=== PATIENT | female | born 1985 | race Caucasian/White ===

== ENCOUNTER 2018-02-16 03:12 | Inpatient (IN) ==
--- NOTE | 2018-02-16 03:41 | ED ---
HPI General Chief Complaint: Fall Stated Complaint: fall Time Seen by Provider: 02/16/18 03:26 History of Present Illness HPI Narrative: Patient is a 32-year-old female who was at a bar dancing on a bar and she slipped and fell off the bar and landed on a barstool in the floor. She complains of left lateral rib area rib 5 through 7 area on the lateral aspect she has a small hematoma to her forearm she is not complaining of shortness of breath she is mildly intoxicated and the main complaint is severe pain in the lateral left ribs , worse with deep inspiration , worse with movement worse with stretching or bending... No complaint of long bones pain on initial exam ... CAT scan will be done of her chest and ribs Related Data Home Medications Medication Instructions Recorded Confirmed bupropion HCl [Wellbutrin SR] 100 mg PO BID 02/16/18 02/16/18 sertraline [Zoloft] 25 mg PO DAILY 02/16/18 02/16/18 Previous Rx's Medication Instructions Recorded cyclobenzaprine 5 mg PO Q8HR #15 tab 02/17/18 oxycodone-acetaminophen [Percocet] 1 tab PO Q4H PRN #14 tab 02/17/18 sennosides-docusate sodium [Senna 1 tab PO BID tab 02/17/18 Plus] Allergies Allergy/AdvReac Type Severity Reaction Status Date / Time codeine Allergy Vomiting Verified 02/16/18 03:38 Review of Systems ROS: all other systems reviewed are negative REPLACED BY [facility] Social History Social History Substance History: No History of Abuse Second Hand Smoke Exposure: Yes Smoking Status: Current every day smoker Tobacco Type: Cigarettes How Often Do You Have a Drink Containing Alcohol: 2 to 3 times a week Immunization History Tetanus Immunization: Unsure Exam Narrative Exam Narrative: GENERAL: Pt appears in pain , holding her left ribs SKIN: Warm and dry. HEAD: Atraumatic. Normocephalic. EYES: Pupils equal and round. No scleral icterus. No injection or drainage. ENT: No nasal bleeding or discharge. Mucous membranes pink and moist. NECK: Trachea midline. No JVD. CARDIOVASCULAR: Regular rate and rhythm. RESPIRATORY: No accessory muscle use. Clear to auscultation. Breath sounds equal bilaterally. Chest wall left lateral ribs tender to palpation no step off felt GASTROINTESTINAL: Abdomen soft, non-tender, nondistended. Hepatic and splenic margins not palpable. MUSCULOSKELETAL: Extremities without clubbing, cyanosis, or edema. No obvious deformities. NEUROLOGICAL: Awake and alert. No obvious cranial nerve deficits. Motor grossly within normal limits. Five out of 5 muscle strength in the arms and legs. Normal speech. PSYCHIATRIC: Awake alert Course Initial Documented Vital Signs Temperature 98.7 F 02/16/18 03:17 Pulse Rate 95 H 02/16/18 03:17 Respiratory Rate 15 02/16/18 03:17 Blood Pressure 117/64 02/16/18 03:17 Pulse Oximetry 99 02/16/18 03:17 Last Documented Vital Signs Temperature 98.3 F 02/17/18 12:00 Pulse Rate 76 02/17/18 12:00 Respiratory Rate 16 02/17/18 12:00 Blood Pressure 113/55 L 02/17/18 12:00 Pulse Oximetry 95 02/17/18 12:00 Medical Decision Making MDM Narrative Medical decision making narrative: pt has CT showing ribs fracture and pleural sac blood from rib into lung trauma , pt awake alert but in more pain as time goes on, Morphine 4 mg IVP and NS and consulted trauma to admit for close lung obvervation and resp state monitoring pulmonary toiletry Dr. Luis sees pt. bedside and admits Medical Screen Exam Complete: Yes Emergency Medical Condition: Yes Differential Diagnosis Differential Diagnosis: rib fractures vs contusion vs lung contusion vs PTX other Lab Data Result diagrams: 02/17/18 04:14 02/17/18 04:14 POC Results POC Urine Results Negative Lab Results 02/16/18 02/16/18 02/16/18 Range/Units 03:30 04:50 04:50 WBC 10.5 (4.0-11.0) th/mm3 RBC 4.06 (4.00-5.30) mil/mm3 Hgb 12.9 (11.6-15.3) gm/dL Hct 36.9 (35.0-46.0) % MCV 90.8 (80.0-100.0) fL MCH 31.9 (27.0-34.0) pg MCHC 35.1 (32.0-36.0) % RDW 12.6 (11.6-17.2) % Plt Count 200 (150-450) th/mm3 MPV 9.3 (7.0-11.0) fL Neut % (Auto) 75.6 H (16.0-70.0) % Lymph % (Auto) 14.6 (9.0-44.0) % [place] % (Auto) 9.1 H (0.0-8.0) % Eos % (Auto) 0.3 (0.0-4.0) % Baso % (Auto) 0.4 (0.0-2.0) % Neut # (Auto) 7.9 H (1.8-7.7) th/mm3 Lymph # (Auto) 1.5 (1.0-4.8) th/mm3 [place] # (Auto) 1.0 H (0.0-0.9) th/mm3 Eos # (Auto) 0.0 (0.0-0.4) th/mm3 Baso # (Auto) 0.0 (0.0-0.2) th/mm3 WBC Differential . Differential Comment Auto diff final PT (9.8-11.6) sec INR Ratio Sodium 136 (136-145) meq/L Potassium 3.9 (3.5-5.1) meq/L Chloride 102 (98-107) meq/L Carbon Dioxide 25.6 (21.0-32.0) meq/L Anion Gap 8 (5-15) meq/L BUN 7 (7-18) mg/dL Creatinine 0.61 (0.50-1.00) mg/dL Estimated GFR Greater than 89 (>89) mL/min Random Glucose 115 H (74-106) mg/dL Calcium 8.3 L (8.5-10.1) mg/dL Total Bilirubin 0.4 (0.2-1.0) mg/dL AST 19 (15-37) U/L ALT 18 (10-53) U/L Alkaline Phosphatase 44 L (45-117) U/L Total Protein 6.7 (6.4-8.2) g/dL Albumin 4.0 (3.4-5.0) g/dL Urine Color Straw (Yellw/Straw) Urine Clarity Clear (Clear) Urine pH 6.0 (5.0-8.5) Ur Specific [place] 1.002 (1.002-1.035) Urine Protein Negative (Neg-Trace) mg/dL Urine Glucose (UA) Negative (Negative) mg/dL Urine Ketones Negative (Negative) mg/dL Urine Occult Blood Negative (Negative) Urine Nitrate Negative (Negative) Urine Bilirubin Negative (Negative) Urine Urobilinogen Less than 2 (Less than 2) mg/dL Ur Leukocyte Esterase Negative (Negative) Urine WBC Less than 1 (0-5) /hpf Ur Squamous Epith Cells <1 (0-5) /hpf Ur Microscopic Review Not Reportable 02/16/18 02/17/18 02/17/18 Range/Units 04:50 04:14 04:14 WBC 4.6 D (4.0-11.0) th/mm3 RBC 3.78 L (4.00-5.30) mil/mm3 Hgb 12.1 (11.6-15.3) gm/dL Hct 35.1 (35.0-46.0) % MCV 92.8 (80.0-100.0) fL MCH 32.0 (27.0-34.0) pg MCHC 34.5 (32.0-36.0) % RDW 12.2 (11.6-17.2) % Plt Count 161 (150-450) th/mm3 MPV 9.8 (7.0-11.0) fL Neut % (Auto) 47.0 (16.0-70.0) % Lymph % (Auto) 37.4 (9.0-44.0) % [place] % (Auto) 10.9 H (0.0-8.0) % Eos % (Auto) 4.3 H (0.0-4.0) % Baso % (Auto) 0.4 (0.0-2.0) % Neut # (Auto) 2.2 (1.8-7.7) th/mm3 Lymph # (Auto) 1.7 (1.0-4.8) th/mm3 [place] # (Auto) 0.5 (0.0-0.9) th/mm3 Eos # (Auto) 0.2 (0.0-0.4) th/mm3 Baso # (Auto) 0.0 (0.0-0.2) th/mm3 WBC Differential . Differential Comment Auto diff final PT 11.2 (9.8-11.6) sec INR 1.1 Ratio Sodium 140 (136-145) meq/L Potassium 4.3 (3.5-5.1) meq/L Chloride 103 (98-107) meq/L Carbon Dioxide 28.0 (21.0-32.0) meq/L Anion Gap 9 (5-15) meq/L BUN 6 L (7-18) mg/dL Creatinine 0.64 (0.50-1.00) mg/dL Estimated GFR Greater than 89 (>89) mL/min Random Glucose 93 (74-106) mg/dL Calcium 8.4 L (8.5-10.1) mg/dL Total Bilirubin 0.6 (0.2-1.0) mg/dL AST 17 (15-37) U/L ALT 17 (10-53) U/L Alkaline Phosphatase 44 L (45-117) U/L Total Protein 6.0 L D (6.4-8.2) g/dL Albumin 3.4 D (3.4-5.0) g/dL Urine Color (Yellw/Straw) Urine Clarity (Clear) Urine pH (5.0-8.5) Ur Specific [place] (1.002-1.035) Urine Protein (Neg-Trace) mg/dL Urine Glucose (UA) (Negative) mg/dL Urine Ketones (Negative) mg/dL Urine Occult Blood (Negative) Urine Nitrate (Negative) Urine Bilirubin (Negative) Urine Urobilinogen (Less than 2) mg/dL Ur Leukocyte Esterase (Negative) Urine WBC (0-5) /hpf Ur Squamous Epith Cells (0-5) /hpf Ur Microscopic Review Imaging Data Radiologist's impression: Chest CT 02/16/18 03:41 CONCLUSION: 1. There is a comminuted and mildly displaced left posterior ninth rib fracture and a nondisplaced left posterior 10th rib fracture. No associated pneumothorax is present. There is mild adjacent subpleural hemorrhage. Atelectasis is also present in the adjacent left lower lobe. 2. There is a nonspecific incompletely characterized 1.1 cm low-density lesion in the right lobe of the liver. Suggest correlating with patient's prior imaging studies to determine if this is a chronic finding. 3. Main pulmonary artery is mildly enlarged. Chest X-Ray 02/17/18 00:00 CONCLUSION: Left basilar atelectasis. Prominent mediastinal contour at the level of the pulmonary artery. Discharge Plan Discharge Disposition Patient Disposition: Discharge Home Discharge Condition Condition: Stable Discharge Order Discharge Orders: Discharge Order (Routine); Ordered 02/17/18 Ordered By: Brian Sims Physicians Team ED Provider: Sebastian Burleson Primary Care Provider: Primary Care Edith Jensen Attending Provider: Shyam Luis Other Providers: Freeman Stafford ; Tristen Velazco ; Systems[facility] ; Robin Contreras ; Aidee Painter ; Shyam Luis ; Alma Rosa Weston ; Brian Sims ; Kye Howell Status ED Status: Left Department Discharge Information Discharge Date/Time: 02/16/18 08:00
[2018-02-16 04:02] LABS: Bilirubin,Urine Negative (Negative); Clarity,Urine Clear (Clear); Color,Urine Straw (Yellw/Straw); Glucose,Urine (UA) Negative (Negative); Leukocyte Esterase,Urine Negative (Negative); Nitrite,Urine Negative (Negative); Specific Gravity,Urine 1.002 (1.002-1.035); Squamous Epithelial Cell,Urine <1 /hpf (0-5)
--- NOTE | 2018-02-16 04:10 | CT ---
EXAM DATE: 02/16/2018 3:45 AM EDT AGE/SEX: 32 years / Female INDICATIONS: Fall. Left sided rib pain. CLINICAL DATA: This is the patient's initial encounter. Patient reports that signs and symptoms have been present for 1 day and indicates a pain score of 8/10. MEDICAL/SURGICAL HISTORY: Cerebrovascular disease. . Repair of hole in heart RADIATION DOSE: 6.46 CTDI (mGy) COMPARISON: No prior exams available for comparison. TECHNIQUE: Multiple contiguous axial images were obtained through the chest without contrast. Image s were obtained in suspended respiration using multiple row detector helical technique. Using automa eugenia exposure control and adjustment of the mA and/or kV according to patient size, radiation dose was kept as low as reasonably achievable to obtain optimal diagnostic quality images. DICOM format imag e data is available electronically for review and comparison. FINDINGS: Lungs: There is mild atelectasis in the left lower lobe adjacent to the rib fracture. No pneumothora x is present. No concerning pulmonary nodule is identified. Mediastinum: No acute abnormality is identified on this noncontrast examination. Surgical clips are present in the anterior mediastinum. Main pulmonary arteries mildly enlarged measuring 3.6 cm. No lym phadenopathy is identified. Pleurae: No pleural effusion or pleural thickening. There is mild subpleural hemorrhage adjacent to the rib fracture. Axillae: No lymphadenopathy. Musculoskeletal: There is a comminuted and mildly displaced fracture of the left posterior ninth rib . Nondisplaced left posterior 10th rib fracture is also present. Median sternotomy wires are present. Other: Liver density is mildly increased. In the right lobe there is a 1.1 cm low-density lesion. CONCLUSION: 1. There is a comminuted and mildly displaced left posterior ninth rib fracture and a nondisplaced l eft posterior 10th rib fracture. No associated pneumothorax is present. There is mild adjacent subple ural hemorrhage. Atelectasis is also present in the adjacent left lower lobe. 2. There is a nonspecific incompletely characterized 1.1 cm low-density lesion in the right lobe of the liver. Suggest correlating with patient's prior imaging studies to determine if this is a chronic finding. 3. Main pulmonary artery is mildly enlarged. Electronically signed by: Jg Quiroz MD 02/16/2018 4:09 AM EDT
[2018-02-16] MEDS ORDERED: Morphine Inj 4 MG/ML Vial IV.PUSH ONE ×2 (04:27→07:09)
[2018-02-16] MEDS ORDERED: Sod Chloride 0.9% Inj 1,000 ML IV.SIG ONE (04:28)
[2018-02-16 04:59] LABS: Baso % (Auto) 0.4 % (0.0-2.0); Eos % (Auto) 0.3 % (0.0-4.0); Hematocrit 36.9 % (35.0-46.0); Hemoglobin 12.9 gm/dL (11.6-15.3); Lymph # (Auto) 1.5 th/mm3 (1.0-4.8); Lymph % (Auto) 14.6 % (9.0-44.0); Mean Corpuscular HGB Conc 35.1 % (32.0-36.0); Mean Corpuscular Hemoglobin 31.9 pg (27.0-34.0); Mean Corpuscular Volume 90.8 fL (80.0-100.0); Mean Platelet Volume 9.3 fL (7.0-11.0); Mono % (Auto) 9.1 % (0.0-8.0); Neut # (Auto) 7.9 th/mm3 (1.8-7.7); Neut % (Auto) 75.6 % (16.0-70.0); Platelet Count 200 th/mm3 (150-450); Red Blood Count 4.06 mil/mm3 (4.00-5.30); Red Cell Distribution Width 12.6 % (11.6-17.2); White Blood Count 10.5 th/mm3 (4.0-11.0)
[2018-02-16 05:12] LABS: INR 1.1 Ratio; Prothrombin Time 11.2 sec (9.8-11.6)
[2018-02-16 05:28] LABS: Anion Gap 8 meq/L (5-15); Aspartate Aminotransferase 19 U/L (15-37); Blood Urea Nitrogen 7 mg/dL (7-18); Calcium 8.3 mg/dL (8.5-10.1); Carbon Dioxide 25.6 meq/L (21.0-32.0); Chloride 102 meq/L (98-107); Glomerular Filtration Rate Greater Than 89 mL/min (>89); Glucose,Random 115 mg/dL (74-106); Potassium 3.9 meq/L (3.5-5.1); Sodium 136 meq/L (136-145)
[2018-02-16 05:29] LABS: Alanine Aminotransferase 18 U/L (10-53)
[2018-02-16 05:31] LABS: Alkaline Phosphatase 44 U/L (45-117); Total Protein 6.7 g/dL (6.4-8.2)
[2018-02-16] MEDS ORDERED: Naloxone Inj 0.4 MG/ML Vial IV.PUSH ONE (06:21)
[2018-02-16] MEDS: HYDROmorphone PF Inj 2 MG/ML Vial IV.PUSH SCH ×2 (07:21→12:02)
[2018-02-16] MEDS ORDERED: Sodium Chloride 0.9% 2 ML Flush PRN IV.FLUSH (08:43)
[2018-02-16] MEDS ORDERED: Docusate Sodium Liq 100 MG/10 ML UDC PO SCH (09:00)
[2018-02-16] MEDS ORDERED: Docusate Sodium 100 MG Capsule PO SCH (09:00)
[2018-02-16] MEDS: Lidocaine 5% Patch T-DERMAL SCH (09:29)
[2018-02-16] MEDS: Multivitamin Inj 10 ML, Thiamine Inj 100 MG, Folic Acid Inj 1 MG in Sodium Chlor 0.9% I... IV.SIG SCH (09:29)
[2018-02-16] MEDS: Senna/Docusate Sodium 8.6/50 MG Tablet PO SCH ×2 (09:33→20:41)
[2018-02-16] MEDS: Sodium Chloride 0.9% 2 ML Flush BID IV.FLUSH SCH ×2 (09:33→20:41)
--- NOTE | 2018-02-16 09:35 | MH ---
cc: Shyam Luis MD DATE OF ADMISSION: 02/16/2018 CHIEF COMPLAINT: Fall, left rib fractures. CLIENT RESOURCE SPECIALIST: Dr. Burleson. HISTORY OF PRESENT ILLNESS: The patient is a 32-year-old female who presents status post fall. The patient was noted to be dancing on a bar and slipped and fell last night. She went on a bar stool and landed on her left chest. She was complaining of left rib pain and noted some abrasion in this area. Also left forearm pain. She does have positive ETOH. She is hemodynamically stable. GCS of 15, appropriately responding to commands. Surgery was consulted for further evaluation and management. Primary and secondary surveys were done. No further acute traumatic findings. PAST MEDICAL HISTORY: "Hole in heart," suspect PDA. PAST SURGICAL HISTORY: Open heart surgery. ALLERGIES: CODEINE. MEDICATIONS: See EMR. SOCIAL HISTORY: Positive smoking, positive ETOH. FAMILY HISTORY: Denies diabetes or hypertension. REVIEW OF SYSTEMS: General 12-point review of systems is otherwise negative, except as above. PHYSICAL EXAMINATION: GENERAL: The patient is in no acute distress. VITAL SIGNS: Temperature 98.7, pulse 95, respiration 15, blood pressure 117/64, saturation 99%. HEENT: Pupils are round, reactive. NECK: Supple. Trachea midline. Clavicles nontender. LUNGS: Clear to auscultation. Bilateral expansion. A well-healed midline surgical scar. HEART: S1, S2. Regular. ABDOMEN: Soft, nontender, nondistended. Left chest positive tenderness to palpation. EXTREMITIES: Warm and well perfused. A small bruising, left extremity forearm. NEUROLOGIC: GCS of 15, 5/5 motor in all extremities. SKIN: As above. Bruising to the left arm. LABORATORY AND DIAGNOSTIC DATA: WBC 10.5, hemoglobin 12.9, hematocrit 36.9, platelets 200. Sodium 136, potassium 3.5, chloride 102, CO2 of 25.6, BUN 7, creatinine 0.6, glucose 115. CT scan reviewed by myself showing a fracture, left-sided rib numbers 9 and 10. A 1 cm right lobe lesion. No hemothorax. ASSESSMENT: The patient is a 32-year-old female, status post fall. The patient noted to have rib fractures x 2. No hemo or pneumothorax. PLAN: After full workup, the patient with above noted issues. At this point, we will admit the patient for pain control, IV fluids and pulmonary toilet. We will recheck a chest x-ray to make sure no pneumothorax develops. We will get respiratory involved for pulmonary toilet and deep breathing exercises. Discussed with the patient in detail. Likely nonoperative intervention; however, would need aggressive respiratory therapy and pain control. MD JESE Kaye/alexi , 07:24 AM , 07:32 AM
[2018-02-16] MEDS: HYDROmorphone PF Inj 2 MG/ML Vial IV.PUSH PRN ×2 (11:05→14:15)
[2018-02-16] MEDS: Sod Chloride 0.9% Inj 1,000 ML IV.CONT SCH ×2 (12:01→16:12)
[2018-02-16] MEDS: Pantoprazole Inj 40 MG Vial IV.PUSH SCH (12:01)
[2018-02-16] MEDS ORDERED: HYDROmorphone PF Inj 2 MG/ML Vial IV.PUSH PRN (14:58)
[2018-02-16] MEDS: Ketorolac Inj 30 MG/ML (IVP) Vial IV.PUSH SCH ×3 (16:15→21:12)
[2018-02-16] MEDS: Sertraline 50 MG Tablet PO SCH (16:15)
[2018-02-16] MEDS: buPROPion 100 MG ER 12 HR Tablet PO SCH ×3 (16:15→20:55)
[2018-02-16] MEDS ORDERED: Senna/Docusate Sodium 8.6/50 MG Tablet PO SCH (21:00)
[2018-02-17] MEDS: Sod Chloride 0.9% Inj 1,000 ML IV.CONT SCH ×2 (01:31→14:10)
[2018-02-17] MEDS ORDERED: Chlorhexidine Gluconate 2% 1 Pack (2 Cloths) TOPICAL PRN (04:00)
[2018-02-17] MEDS ORDERED: Chlorhexidine Gluconate 2% 1 Pack (2 Cloths) TOPICAL SCH (04:00)
[2018-02-17] MEDS: Pantoprazole Inj 40 MG Vial IV.PUSH SCH ×2 (04:15→05:35)
[2018-02-17] MEDS: Ketorolac Inj 30 MG/ML (IVP) Vial IV.PUSH SCH ×4 (04:15→16:22)
[2018-02-17 05:28] LABS: Baso % (Auto) 0.4 % (0.0-2.0); Eos # (Auto) 0.2 th/mm3 (0.0-0.4); Eos % (Auto) 4.3 % (0.0-4.0); Hematocrit 35.1 % (35.0-46.0); Hemoglobin 12.1 gm/dL (11.6-15.3); Lymph # (Auto) 1.7 th/mm3 (1.0-4.8); Lymph % (Auto) 37.4 % (9.0-44.0); Mean Corpuscular HGB Conc 34.5 % (32.0-36.0); Mean Corpuscular Volume 92.8 fL (80.0-100.0); Mean Platelet Volume 9.8 fL (7.0-11.0); Mono # (Auto) 0.5 th/mm3 (0.0-0.9); Mono % (Auto) 10.9 % (0.0-8.0); Neut # (Auto) 2.2 th/mm3 (1.8-7.7); Platelet Count 161 th/mm3 (150-450); Red Blood Count 3.78 mil/mm3 (4.00-5.30); Red Cell Distribution Width 12.2 % (11.6-17.2); White Blood Count 4.6 th/mm3 (4.0-11.0)
[2018-02-17] MEDS: Multivitamin Inj 10 ML, Thiamine Inj 100 MG, Folic Acid Inj 1 MG in Sodium Chlor 0.9% I... IV.SIG SCH (05:36)
[2018-02-17 05:40] LABS: Alanine Aminotransferase 17 U/L (10-53); Albumin 3.4 g/dL (3.4-5.0); Anion Gap 9 meq/L (5-15); Aspartate Aminotransferase 17 U/L (15-37); Blood Urea Nitrogen 6 mg/dL (7-18); Calcium 8.4 mg/dL (8.5-10.1); Chloride 103 meq/L (98-107); Glomerular Filtration Rate Greater Than 89 mL/min (>89); Glucose,Random 93 mg/dL (74-106); Potassium 4.3 meq/L (3.5-5.1); Sodium 140 meq/L (136-145)
[2018-02-17 05:51] LABS: Alkaline Phosphatase 44 U/L (45-117)
--- NOTE | 2018-02-17 07:52 | XR ---
EXAM DATE: 02/17/2018 12:00 AM EDT AGE/SEX: 32 years / Female INDICATIONS: Pain left chest and ribs, difficult to take a deep breath CLINICAL DATA: This is the patient's subsequent encounter. Patient reports that signs and symptoms h ave been present for 1 day and indicates a pain score of 7/10. MEDICAL/SURGICAL HISTORY: Cardiovascular disease. left rib fractures . open heart surgery to r epair a hole in the heart done at age 19 COMPARISON: No prior exams available for comparison. FINDINGS: Median sternotomy wires and cardiomegaly noted. There is bandlike density at the left lung base felt to represent an area of atelectasis. Pulmonary arterial contour appears enlarged. CONCLUSION: Left basilar atelectasis. Prominent mediastinal contour at the level of the pulmonary artery. Electronically signed by: Van Schaffer MD 02/17/2018 7:51 AM EDT
[2018-02-17] MEDS: Senna/Docusate Sodium 8.6/50 MG Tablet PO SCH (08:43)
[2018-02-17] MEDS: Sertraline 50 MG Tablet PO SCH (08:43)
[2018-02-17] MEDS: buPROPion 100 MG ER 12 HR Tablet PO SCH (08:43)
[2018-02-17] MEDS: Sodium Chloride 0.9% 2 ML Flush BID IV.FLUSH SCH (08:44)
[2018-02-17] MEDS: Lidocaine 5% Patch T-DERMAL SCH (08:44)
[2018-02-17 09:16] VITALS: RESP 16
[2018-02-17 12:21] VITALS: BP 113/55; PULSE 76; TEMP 98.3; O2SAT 95
--- NOTE | 2018-02-17 13:54 | P.DS ---
Date of admission: 02/16/18 05:51 Primary care physician: No Primary Care Physician Brief History from admission: S/P Fall DS: Diagnosis - Discharge Diagnosis (1) Pulmonary contusion Status: Acute (2) Ribs, multiple fractures Status: Acute DS: Medications - Discharge Medications Prescriptions: cyclobenzaprine 5 mg PO Q8HR #15 tab oxycodone-acetaminophen [Percocet] 1 tab PO Q4H PRN #14 tab PRN Reason: Acute Pain DS: Summary Hospital Course: [place]: Dancing on a bar and fell off landing on a barstool. No LOC. INJURIES: LEFT rib fxs (9, 10) LEFT pulmonary contusion PMHx: depression LEFT rib fxs, LEFT pulmonary contusion Supportive care Pulmonary toileting CXR shows left basilar atelectasis. No PTX Pain control Bowel regimen OOB- PT ordered Follow-up in 1 week with PCP Plan of care discussed with patient and RN at bedside. Radiology imaging requested for patient to take to her PCP. Collaborating Trauma surgeon agrees with plan. Case management consulted to assist with discharge planning. Patient is clear from trauma surgery standpoint to safely discharge home. - Time Spent with Patient Total time spent providing and/or coordinating discharge services: Greater than 30 minutes - Quality: VTE Deep Vein Thrombosis/Pulmonary Embolism Present on Admission: No Exam Vital signs: Vital Signs 02/16/18 16:53 02/16/18 19:24 02/16/18 20:00 Temperature 98.1 F 98.0 F Pulse Rate 83 79 Respiratory Rate 19 18 17 Blood Pressure 111/60 105/57 L Pulse Oximetry 96 98 02/16/18 21:10 02/17/18 00:00 02/17/18 02:30 Temperature 97.9 F Pulse Rate 70 Respiratory Rate 18 17 18 Blood Pressure 112/62 Pulse Oximetry 99 02/17/18 05:33 02/17/18 05:57 02/17/18 08:00 Temperature 97.8 F Pulse Rate 72 Respiratory Rate 18 17 16 Blood Pressure 114/65 Pulse Oximetry 98 02/17/18 12:00 Temperature 98.3 F Pulse Rate 76 Respiratory Rate 16 Blood Pressure 113/55 L Pulse Oximetry 95 Intake & Output 02/16/18 02/17/18 02/17/18 18:59 06:59 18:59 Intake Total 1711.2 / 1711.2 240 / 240 Balance 1711.2 / 1711.2 240 / 240 Weight 83 kg 84.3 kg Intake: IV 1711.2 / 1711.2 Ofirmev Inj 1,000 mg In 100 ml 200 / 200 @ 400 mls/hr IV[facility] Q6H [facility] Rx# :[id number] MVI-12 Inj 10 ML Thiamine Inj 511.2 / 511.2 100 MG Folvite Inj 1 MG In NS Inj 500 ML @ 125 mls/hr IV.SIG Q24H [facility] Rx#:[id number] NS Inj 1,000 ML @ Wide Open IV. 1000 / 1000 SIG BOLUS ONE Rx#:[id number] Oral 240 / 240 Other: # Voids 5 Date of Last Bowel Movement 02/15/18 02/15/18 02/15/18 Weight On Admission 83 kg Narrative: GENERAL: 32-year-old well-nourished, well developed female lying in bed in no acute distress. SKIN: Warm and dry. HEAD: Normocephalic. CARDIOVASCULAR: Regular rate and rhythm. RESPIRATORY: No accessory muscle use. Lungs clear and diminished to auscultation. Breath sounds equal bilaterally. GASTROINTESTINAL: Abdomen soft, non-tender, nondistended. + BS. MUSCULOSKELETAL: Extremities without cyanosis, or edema. MAEW, + perfused NEUROLOGICAL: Awake and alert. Normal speech. Results Procedures completed during hospitalization: . Labs on day of discharge: Labs from last 24 hours 02/17/18 02/17/18 04:14 04:14 WBC 4.6 D RBC 3.78 L Hgb 12.1 Hct 35.1 MCV 92.8 MCH 32.0 MCHC 34.5 RDW 12.2 Plt Count 161 MPV 9.8 Neut % (Auto) 47.0 Lymph % (Auto) 37.4 [place] % (Auto) 10.9 H Eos % (Auto) 4.3 H Baso % (Auto) 0.4 Neut # (Auto) 2.2 Lymph # (Auto) 1.7 [place] # (Auto) 0.5 Eos # (Auto) 0.2 Baso # (Auto) 0.0 WBC Differential . Differential Comment Auto diff final Sodium 140 Potassium 4.3 Chloride 103 Carbon Dioxide 28.0 Anion Gap 9 BUN 6 L Creatinine 0.64 Estimated GFR Greater than 89 Random Glucose 93 Calcium 8.4 L Total Bilirubin 0.6 AST 17 ALT 17 Alkaline Phosphatase 44 L Total Protein 6.0 L D Albumin 3.4 D - Impressions ITS Impressions Chest CT 02/16/18 03:41 CONCLUSION: 1. There is a comminuted and mildly displaced left posterior ninth rib fracture and a nondisplaced left posterior 10th rib fracture. No associated pneumothorax is present. There is mild adjacent subpleural hemorrhage. Atelectasis is also present in the adjacent left lower lobe. 2. There is a nonspecific incompletely characterized 1.1 cm low-density lesion in the right lobe of the liver. Suggest correlating with patient's prior imaging studies to determine if this is a chronic finding. 3. Main pulmonary artery is mildly enlarged. Chest X-Ray 02/17/18 00:00 CONCLUSION: Left basilar atelectasis. Prominent mediastinal contour at the level of the pulmonary artery. Discharge Plan - Discharge Disposition Patient Disposition: 01 Discharge Home - Discharge Condition Condition: Stable - Discharge Order Discharge Orders: Discharge Order (Routine); Ordered 02/17/18 Ordered By: Brian Sims - Physicians Team Primary Care Provider: Primary Care Physici,No Attending Provider: Shyam Luis Other Providers: Freeman Stafford MD ; Tristen Velazco MD ; Systems[facility] [employer] ; Robin Contreras MD ; Aidee Painter ARNP ; Shyam Luis MD ; Alma Rosa Weston MD ; Brian Sims ARNP ; Kye Howell MD
== END 2018-02-17 16:54 | disposition home or self-care (01) ==
LOC: NEPC 03:12 → NEDA 05:51 → N06 08:00
PROVIDERS: ADMIT Surgery; ATTEND Surgery